=== PATIENT | female | born 1955 | race Caucasian/White ===

== ENCOUNTER 2018-08-26 04:54 | Emergency (ER) | payer BC ==
[~2018-08-26] VITALS: Ht 165.1 cm; Wt 70.3 kg
[2018-08-26] MEDS ORDERED: COUMADIN7.5 MG PO (05:06)
[2018-08-26] MEDS ORDERED: FUROSEMIDE 80 M80 M1 PO (05:07)
[2018-08-26] MEDS ORDERED: POTASSIUM20 (05:07)
[2018-08-26] MEDS ORDERED: COUMADIN 5 MG TA5 M1 PO (05:07)
[2018-08-26] MEDS ORDERED: LINZESS290 MCG PO (05:09)
[2018-08-26] MEDS ORDERED: XALATAN2.5 ML OPHTHALMIC (05:09)
[2018-08-26] MEDS ORDERED: XANAX 0.25 MG0.25 MG PO (05:10)
[2018-08-26] MEDS ORDERED: PROTONIX40 M1 PO (05:10)
[2018-08-26] MEDS ORDERED: MULTAQ 400 MG400 MG PO (05:11)
[2018-08-26] MEDS ORDERED: KAPSPARGO SPRIN25 MG PO (05:11)
[2018-08-26] MEDS ORDERED: UNICOMPLEX M TA1 TA1 PO (05:13)
[2018-08-26] MEDS ORDERED: SYNTHROID25 MC1 (05:13)
[2018-08-26] MEDS ORDERED: VITAMIN B-12500 MCG PO (05:14)
[2018-08-26 05:23] LABS: ABSOLUTE BASOPHILS 0.1 thou/uL (0.0-0.2); ABSOLUTE EOSINOPHILS 0.2 thou/uL (0.0-0.7); ABSOLUTE LYMPHOCYTES 1.8 thou/uL (0.8-5.3); ABSOLUTE MONOCYTES 0.6 thou/uL (0.0-1.2); ABSOLUTE NEUTROPHILS 2.8 thou/uL (1.6-8.1); BASOPHILS 1.1 %; EOSINOPHILS 3.2 %; HEMATOCRIT 37.9 % (37.0-47.0); HEMOGLOBIN 12.9 gm/dL (12.0-15.0); LYMPHOCYTES 32.8 %; MCH 30.9 pg (26.0-34.0); MCHC 34.1 g/dL (28.0-37.0); MCV 90.7 fL (80.0-100.0); MONOCYTES 10.9 %; MPV 9.3 fl. (7.2-11.1); NUCLEATED RBCS 0 /100WBC; PLATELET COUNT* 151 thou/uL (150-400); RBC 4.18 mil/uL (4.20-5.00); RDW-CV 13.5 % (10.5-14.5); WBC 5.4 thou/uL (4.0-11.0)
[2018-08-26 05:39] LABS: CALCIUM 9.4 mg/dL (8.5-10.1); CREATININE 1.4 mg/dL (0.6-1.3)
[2018-08-26 05:43] LABS: APTT 38.3 Seconds (25.0-31.3)
[2018-08-26 05:45] LABS: POTASSIUM 2.4 mmol/L (3.5-5.1)
[2018-08-26 05:52] LABS: ALBUMIN 4.2 g/dL (3.4-5.0); TOTAL BILIRUBIN 0.6 mg/dL (<0.1-1.0); TOTAL PROTEIN 8.1 g/dL (6.4-8.2)
[2018-08-26 06:17] VITALS: BP 104/57
--- NOTE | 2018-08-26 17:29 | EKG ---
[place] [address] ELECTROCARDIOGRAM REPORT Name: ABRAHAN ROBLES Room: [facility]#: [id number] Admission: 08/26/18 Attend Phys: Discharge: 08/26/18 Date of : 55 Report #: [id number] THIS REPORT FOR: //name// [facility] ED Test Date: 2018-08-26 Test Time: 06:10:58 Pat Name: ABRAHAN VALDEZDARIANAMEL Department: Room: Gender: F Mortgage Operations Manager: Rodolfo JETT : 1955 Requested By: Shabbir Verma Order Number: [id number] MD: Delmar Rosenthal Measurements Intervals [place] Rate: 66 P: 85 MO: 149 QRS: 127 QRSD: 150 T: 24 QT: 510 QTc: 535 Interpretive Statements Atrial-ventricular dual-paced rhythm No further analysis attempted due to paced rhythm Artifact in lead(s) V3 No previous ECG available for comparison Electronically Signed On 08-26-2018 17:28:56 FIXED ROUTE BUS OPERATOR by Delmar Rosenthal [email or web address] <ELECTRONICALLY SIGNED> By: Delmar Rosenthal MD, [facility] 08/26/18 1728 Delmar Rosenthal MD, FAC /EPI
== END 2018-08-26 06:17 | disposition home or self-care (01) ==
LOC: M.ERS 04:54
PROVIDERS: Family Medicine
DX: S00.03XA Contusion of scalp, initial encounter (principal); E87.6 Hypokalemia; I11.0 Hypertensive heart disease with heart failure; I50.9 Heart failure, unspecified; I48.91 Unspecified atrial fibrillation; Z95.0 Presence of cardiac pacemaker; Z98.890 Other specified postprocedural states; W19.XXXA Unspecified fall, initial encounter; Y93.89 Activity, other specified; Y92.89 Other specified places as the place of occurrence of the external cause; Y99.8 Other external cause status